=== PATIENT | male | born 1985 | race Caucasian/White ===

== ENCOUNTER 2024-10-20 14:52 | Emergency (ER) | payer MEDICAID, OTHER ==
[~2024-10-20] VITALS: Ht 182.9 cm; Wt 100.0 kg
[~2024-10-20 14:52] MED LIST: ALBU8.5H INH; CLIN-250 PO; LEVO75TAB PO; LURA60TA PO; METR-265 PO; NICO21PAT TD; PERCOCET PO; PRAZ1CAP PO
[2024-10-20 15:39] LABS: PLATELET COUNT, AUTOMATED 252 10^3/uL (150-450)
[2024-10-20 16:00] LABS: AMPHETAMINES LEVEL URINE NEGATIVE (NEGATIVE); BARBITURATES URINE NEGATIVE (NEGATIVE); BENZODIAZEPINES URINE NEGATIVE (NEGATIVE); CANNABINOIDS URINE POSITIVE (NEGATIVE); COCAINE METABOLITE URINE NEGATIVE (NEGATIVE); METHADONE URINE NEGATIVE (NEGATIVE); OPIATES URINE NEGATIVE (NEGATIVE); PHENCYCLIDINE URINE NEGATIVE (NEGATIVE)
[2024-10-20] MEDS: LORazepam 1 MG TAB PO STA (16:01)
[2024-10-20 16:03] LABS: ETHYL ALCOHOL (ETHANOL) < 0.003 % (0.000-0.010)
[2024-10-20 16:04] LABS: ALT/SGPT 24 U/L (7.0-40); AST/SGOT 30 U/L (<34); CALCIUM LEVEL 9.4 MG/DL (8.5-10.1); CARBON DIOXIDE LEVEL 23 MMOL/L (20-31); CHLORIDE LEVEL 107 MMOL/L (98-107); CREATININE FOR GFR 0.99 MG/DL (0.70-1.30); GLOMERULAR FILTRATION RATE > 90.0 (>60); POTASSIUM SERUM 3.7 MMOL/L (3.5-5.1); SALICYLATE LEVEL < 3.0 MG/DL (<30); SODIUM LEVEL 142 MMOL/L (136-145)
[2024-10-20 16:24] VITALS: BP 155/89; TEMP 97.9; O2SAT 100
== END 2024-10-20 16:26 | disposition home or self-care (01) ==
LOC: M ED 14:52
DX: F41.9 Anxiety disorder, unspecified (principal); J44.9 Chronic obstructive pulmonary disease, unspecified; J45.909 Unspecified asthma, uncomplicated; F17.200 Nicotine dependence, unspecified, uncomplicated; F12.10 Cannabis abuse, uncomplicated; Z79.899 Other long term (current) drug therapy; Z88.0 Allergy status to penicillin; Z88.1 Allergy status to other antibiotic agents; Z88.2 Allergy status to sulfonamides

== ENCOUNTER → 2024-10-24 | Outpatient (CLI) | payer OTHER ==
[2024-10-24 08:09] LABS: BASO # 0.0 10^3/uL (0.0-0.2); BASO % 0.5 % (0.0-1.0); EOS # 0.2 10^3/uL (0.0-0.5); EOS % 3.4 % (0.0-3.0); LYMPH # 2.1 10^3/uL (1.5-5.0); LYMPH % 33.4 % (24.0-44.0); MONO # 0.4 10^3/uL (0.0-0.8); MONO % 5.8 % (2.0-8.0); NEUTROPHILS # 3.6 10^3/uL (1.5-8.5); NEUTROPHILS % 56.6 % (36.0-66.0); PLATELET COUNT, AUTOMATED 221 10^3/uL (150-450)
[2024-10-24 08:41] LABS: IRON (FE) 54.0 UG/DL (65-175); PERCENT SATURATION 18.4 % (19.7-50.0)
[2024-10-24 08:42] LABS: ALT/SGPT 21.0 U/L (7.0-40); AST/SGOT 28.0 U/L (<34); CALCIUM LEVEL 9.1 MG/DL (8.5-10.1); CARBON DIOXIDE LEVEL 26.0 MMOL/L (20-31); CHLORIDE LEVEL 108.0 MMOL/L (98-107); CHOLESTEROL LEVEL 174.0 MG/DL (<200); CHOLESTEROL RISK RATIO 3.35 (<5); CREATININE FOR GFR 1.09 MG/DL (0.70-1.30); GLOMERULAR FILTRATION RATE 88.5 (>60); LDL CHOLESTEROL 105.9 MG/DL (<100); MAGNESIUM LEVEL 2.0 MG/DL (1.8-2.4); NON-HDL-C 122.1 MG/DL; POTASSIUM SERUM 4.3 MMOL/L (3.5-5.1); SODIUM LEVEL 144.0 MMOL/L (136-145); TRIGLYCERIDES LEVEL 81.0 MG/DL (<150)
[2024-10-24 08:43] LABS: FREE T4 1.26 NG/DL (0.89-1.76); TOTAL 25(OH) VITAMIN D 34.4 NG/ML (20.0-100.0)
[2024-10-24 08:44] LABS: VITAMIN B12 LEVEL 485.0 PG/ML (211-911)
[2024-10-24 09:05] LABS: ESTIMATED AVERAGE GLUCOSE 91.0 MG/DL (60-110)
== END ==
LOC: M EKG 07:31
PROVIDERS: ATTEND Nurse Practitioner Psychiatric/Mental Health
DX: F43.10 Post-traumatic stress disorder, unspecified (principal)

== ENCOUNTER → 2024-12-17 | Outpatient (REF) | payer OTHER ==
[2024-12-17 17:38] LABS: ALT/SGPT 27 U/L (7.0-40); AST/SGOT 25 U/L (<34); CALCIUM LEVEL 9.3 MG/DL (8.5-10.1); CARBON DIOXIDE LEVEL 27 MMOL/L (20-31); CHLORIDE LEVEL 104 MMOL/L (98-107); CHOLESTEROL LEVEL 201 MG/DL (<200); CHOLESTEROL RISK RATIO 2.78 (<5); CREATININE FOR GFR 0.83 MG/DL (0.70-1.30); GLOMERULAR FILTRATION RATE > 90.0 (>60); LDL CHOLESTEROL 114.4 MG/DL (<100); MAGNESIUM LEVEL 2.0 MG/DL (1.8-2.4); NON-HDL-C 128.8 MG/DL; POTASSIUM SERUM 4.3 MMOL/L (3.5-5.1); SODIUM LEVEL 138 MMOL/L (136-145); TRIGLYCERIDES LEVEL 72 MG/DL (<150); VITAMIN B12 LEVEL 442 PG/ML (211-911)
[2024-12-17 18:47] LABS: ESTIMATED AVERAGE GLUCOSE 97.0 MG/DL (60-110)
== END ==
LOC: M LAB REF 14:42
PROVIDERS: ATTEND Nurse Practitioner Family
DX: E66.3 Overweight (principal); F07.81 Postconcussional syndrome; Z11.9 Encounter for screening for infectious and parasitic diseases, unspecified; F10.20 Alcohol dependence, uncomplicated

== ENCOUNTER 2025-01-21 03:29 | Emergency (ER) | payer OTHER ==
[~2025-01-21] VITALS: Ht 182.9 cm; Wt 102.4 kg
[2025-01-21] MEDS ORDERED: PRAZ2CAP PO (08:39)
[2025-01-21] MEDS ORDERED: DIVA250T7 PO (08:39)
[2025-01-21] MEDS ORDERED: CLON0.5T2 PO (08:39)
[2025-01-21] MEDS ORDERED: HYDR50CA2 PO (08:39)
[2025-01-21] MEDS ORDERED: FLUTISP INH (08:39)
[2025-01-21] MEDS ORDERED: GABA-1172 PO (08:39)
[2025-01-21] MEDS ORDERED: TRAZ1TAB14 PO (08:39)
[2025-01-21] MEDS ORDERED: CETI-24 PO (08:39)
[2025-01-21 08:47] VITALS: BP 159/94; TEMP 97.8; O2SAT 96
[2025-01-22] MEDS ORDERED: LURA80TA PO (10:28)
== END 2025-01-21 08:48 | disposition home or self-care (01) ==
LOC: M ED 03:29
DX: Z45.9 Encounter for adjustment and management of unspecified implanted device (principal); F41.9 Anxiety disorder, unspecified; F43.10 Post-traumatic stress disorder, unspecified; F32.A Depression, unspecified; F17.200 Nicotine dependence, unspecified, uncomplicated; F12.10 Cannabis abuse, uncomplicated

== ENCOUNTER 2025-01-22 07:45 | Inpatient (IN) | payer OTHER ==
[~2025-01-22] VITALS: Ht 182.9 cm; Wt 99.6 kg
[~2025-01-22 07:45] MED LIST changes: +CETI-24 PO; +CLON0.5T2 PO; +DIVA250T7 PO; +FLUTISP INH; +GABA-1172 PO; +HYDR50CA2 PO; +PRAZ2CAP PO; +TRAZ1TAB14 PO
[2025-01-22] MEDS ORDERED: NICOTINE 14 MG/24 HR TRANSDERMAL TD SCH (09:00)
[2025-01-22 09:16] LABS: PLATELET COUNT, AUTOMATED 270 10^3/uL (150-450)
[2025-01-22] MEDS: clonazePAM 0.5 MG TAB PO ONE (09:32)
[2025-01-22 09:47] LABS: AMPHETAMINES LEVEL URINE NEGATIVE (NEGATIVE); BARBITURATES URINE NEGATIVE (NEGATIVE)
[2025-01-22 09:48] LABS: COCAINE METABOLITE URINE NEGATIVE (NEGATIVE); METHADONE URINE NEGATIVE (NEGATIVE); OPIATES URINE NEGATIVE (NEGATIVE); PHENCYCLIDINE URINE NEGATIVE (NEGATIVE)
[2025-01-22 09:49] LABS: BENZODIAZEPINES URINE POSITIVE (NEGATIVE); CANNABINOIDS URINE POSITIVE (NEGATIVE)
[2025-01-22 09:51] LABS: ETHYL ALCOHOL (ETHANOL) < 0.003 % (0.000-0.010)
[2025-01-22 09:53] LABS: SALICYLATE LEVEL < 3.0 MG/DL (<30)
[2025-01-22 09:57] LABS: ALT/SGPT 33 U/L (7.0-40); AST/SGOT 62 U/L (<34); CALCIUM LEVEL 9.7 MG/DL (8.5-10.1); CARBON DIOXIDE LEVEL 22 MMOL/L (20-31); CHLORIDE LEVEL 109 MMOL/L (98-107); CREATININE FOR GFR 1.04 MG/DL (0.70-1.30); GLOMERULAR FILTRATION RATE > 90.0 (>60); POTASSIUM SERUM 5.5 MMOL/L (3.5-5.1); SODIUM LEVEL 140 MMOL/L (136-145)
[2025-01-22] MEDS ORDERED: LURA80TA PO (10:28)
[2025-01-22] MEDS ORDERED: MOM 30 ML SUSPENSION UDC PO PRN ×2 (11:45→12:20)
[2025-01-22] MEDS ORDERED: ACETAMINOPHEN 325 MG TAB PO PRN ×2 (11:45→12:20)
[2025-01-22] MEDS ORDERED: HALOPERIDOL 5 MG TAB PO PRN (11:45)
[2025-01-22] MEDS ORDERED: traZODone 50 MG TAB PO PRN ×2 (11:45→12:20)
[2025-01-22] MEDS ORDERED: IBUPROFEN 400 MG TAB PO PRN (11:45)
[2025-01-22] MEDS ORDERED: OLANZapine 5 MG TAB PO PRN (11:45)
[2025-01-22] MEDS ORDERED: LORazepam 1 MG TAB PO PRN (11:45)
[2025-01-22] MEDS ORDERED: MAALOX 30 ML SUSP *UDC PO PRN ×2 (11:45→12:20)
[2025-01-22] MEDS ORDERED: HOME MED LIST COMPLETE! XX SCH (12:20)
[2025-01-22] MEDS: OLANZapine INTRAMUSCULAR 10MG VIAL IM STA (12:33)
[2025-01-22 15:15] VITALS: BP 130/96; TEMP 98.3; O2SAT 95
[2025-01-22] MEDS: LORazepam 1 MG TAB PO PRN (16:08)
[2025-01-22] MEDS: HALOPERIDOL 5 MG TAB PO PRN (16:08)
[2025-01-22] MEDS: IBUPROFEN 400 MG TAB PO PRN (16:33)
[2025-01-22] MEDS: NICOTINE 14 MG/24 HR TRANSDERMAL TD SCH (18:31)
[2025-01-23 06:55] VITALS: BP 134/79; TEMP 97.6; O2SAT 99
[2025-01-23] MEDS ORDERED: NICOTINE 14 MG/24 HR TRANSDERMAL TD SCH (09:00)
[2025-01-23] MEDS: OLANZapine 5 MG TAB PO PRN (09:17)
== END 2025-01-23 12:47 | disposition home or self-care (01) | DRG 753 ==
LOC: M ED 07:45 → M ED INP 11:43 → M PSY 14:56
PROVIDERS: ADMIT Internal Medicine; ATTEND Internal Medicine
DX: F31.81 Bipolar II disorder (principal); R45.851 Suicidal ideations; F41.9 Anxiety disorder, unspecified; F60.3 Borderline personality disorder; Z59.00 Homelessness unspecified; Z79.899 Other long term (current) drug therapy; Z88.0 Allergy status to penicillin; Z88.1 Allergy status to other antibiotic agents; Z88.2 Allergy status to sulfonamides; Z88.8 Allergy status to other drugs, medicaments and biological substances

== ENCOUNTER → 2025-02-10 | Outpatient (REF) | payer OTHER, MEDICAID ==
[~2025-02-10] MED LIST changes: +LURA80TA PO
== END ==
LOC: M LAB REF 16:22
PROVIDERS: ATTEND Nurse Practitioner Family
DX: E87.5 Hyperkalemia (principal)